=== PATIENT | male | born 1960 | race Caucasian/White ===

== ENCOUNTER 2018-08-28 18:07 | Observation (INO) | payer MEDICAID ==
[~2018-08-28] VITALS: Ht 177.8 cm; Wt 75.0 kg
--- NOTE | 2018-08-28 19:20 | NUR ---
PT HAS FAMILY IN ROOM- SON STATES HE IS THE PATIENT'S POWER OF SENIOR DATABASE PROGRAMMER. STATES THE PATIENT HAD BEEN IN THE LONG TERM FOR HIS CIRRHOSIS AND DEMENTIA- STATES DRINKS A FIFTH OF HARD LIQUOR DAILY. WAS SENT HOME ON HOSPICE, BUT TODAY, THE HOSPICE NURSE WENT TO SEE PATIENT AND DECIDED HE NEEDED TO COME TO THE HOSPITAL. PT ALMA. HAS VOIDED ON THE FLOOR. EVS IN TO CLEAN FLOOR.
[2018-08-28 19:26] LABS: BASOPHILS 1.1 % (0-2); EOSINOPHILS 1.6 % (0-7); HEMOGLOBIN 13.5 g/dL (13.5-17.5); IMMATURE GRANULOCYTES 0.3 % (0-5); LYMPHOCYTES 36.8 % (15-50); MCH 30.3 pg (26.0-34.0); MCHC 34.6 g/dL (31.0-37.0); MCV 87.6 fL (80.0-100.0); MEAN PLATELET VOLUME 7.8 fL (7.4-10.4); MONOCYTES 9.3 % (2-11); NEUTROPHILS 50.9 % (40-80); RBC 4.45 10x6/uL (4.20-6.10); RDW 15.7 % (11.5-14.5); WBC 15.2 10x3/uL (4.8-10.8)
[2018-08-28 19:43] LABS: ALBUMIN 3.2 g/dL (3.4-5.0); ALKALINE PHOSPHATASE 125 U/L (46-116); ALT (SGPT) 23 U/L (10-68); BILIRUBIN - TOTAL 0.37 mg/dL (0.2-1.3); CALCIUM 8.1 mg/dL (8.5-10.1); CARBON DIOXIDE 20.5 mmol/L (21.0-32.0); CHLORIDE - SERUM 102 mmol/L (98-107); CREATININE - SERUM 0.5 mg/dL (0.6-1.3); PROTEIN - SERUM 7.9 g/dL (6.4-8.2); SODIUM 142 mmol/L (136-145); UREA NITROGEN 5 mg/dL (7-18); eGFR NON AFRICAN AMERICAN > 90 mL/min (90-120)
[2018-08-28 19:44] LABS: MAGNESIUM - SERUM 1.3 mg/dL (1.8-2.4)
[2018-08-28 19:48] LABS: CALC OSMOLALITY 279 mosm/kg (275-300); GLUCOSE 96 mg/dL (74-106)
--- NOTE | 2018-08-28 19:51 | NUR ---
PT ON CM- HR 120. STATES "HASN'T EATEN IN 4 DAYS"- PT GIVEN WATER AND SANDWHICH TRAY. IV FLUIDS AND BANANA BAG INFUSING WITH NO SIGNS OF INFLITRATION.
[2018-08-28 20:01] LABS: PLATELET COUNT 288 10x3/uL (130-400)
--- NOTE | 2018-08-28 20:12 | NUR ---
BLANKET TO PATIENT.
[2018-08-28 21:04] LABS: APPEARANCE CLEAR (CLEAR); COLOR YELLOW (YELLOW)
[2018-08-28 21:05] LABS: BILIRUBIN NEGATIVE (NEGATIVE); GLUCOSE NEGATIVE (NEGATIVE); KETONE NEGATIVE (NEGATIVE); NITRITE NEGATIVE (NEGATIVE); PROTEIN NEGATIVE (NEGATIVE); UROBILINOGEN NORMAL (NORMAL)
[2018-08-28 21:20] LABS: UDS - AMPHET POSITIVE QUAL (NEGATIVE); UDS - BARB NEGATIVE QUAL (NEGATIVE); UDS - BENZO NEGATIVE QUAL (NEGATIVE); UDS - COCAINE NEGATIVE QUAL (NEGATIVE); UDS - OPIATE NEGATIVE QUAL (NEGATIVE); UDS - PCP NEGATIVE QUAL (NEGATIVE); UDS - THC NEGATIVE QUAL (NEGATIVE)
[2018-08-28 22:42] VITALS: BP 129/89
--- NOTE | 2018-08-29 01:05 | NUR ---
PATIENT PULLED LEFT HAND IV OUT, BLED ALL OVER THE BED AND INTO THE BATHROOM. HAD BM. PATIENT STATED HE 'DIDN'T NEED NO DAMN NEEDLES IN HIM', REINFORCED L FA IV WITH COBMALINDA AND EDUCATED PATIENT WE NEEDED THE IV TO GIVE HIS MEDS. PATIENT WAS UNABLE TO GIVE MED REC AND STATED HE DIDN'T KNOW WHAT HE WAS ON HOSPICE FOR OR WHAT CUSTODIAL HE LIVED IN. BED IN LOWEST POSITION, CALL LIGHT IN REACH.
[2018-08-29 04:00] VITALS: BP 116/70
--- NOTE | 2018-08-29 05:11 | NUR ---
PATIENT LYING SIDEWAYS IN BED, CONTINUES TO REQUEST BLANKETS AND TO TURN THE HEAT UP. HEAT IS ON. PATIENT CONTINUES TO BE UNABLE TO ANSWER ANY QUESTIONS ABOUT CONDITION, HOSPICE ADMISSION/DIAGNOSIS OR PROVIDE ANY FAMILY TO CONFIRM MEDICAL/PHARM HISTORY. BED IN LOWEST POSITION, CALL LIGHT IN REACH.
[2018-08-29 07:13] LABS: BASOPHILS 0.7 % (0-2); EOSINOPHILS 4.9 % (0-7); HEMATOCRIT 31.4 % (42.0-54.0); HEMOGLOBIN 10.8 g/dL (13.5-17.5); IMMATURE GRANULOCYTES 0.2 % (0-5); LYMPHOCYTES 36.1 % (15-50); MCH 29.8 pg (26.0-34.0); MCHC 34.4 g/dL (31.0-37.0); MCV 86.5 fL (80.0-100.0); MONOCYTES 11.3 % (2-11); NEUTROPHILS 46.8 % (40-80); PLATELET COUNT 239 10x3/uL (130-400); RBC 3.63 10x6/uL (4.20-6.10); RDW 15.8 % (11.5-14.5)
[2018-08-29 07:19] LABS: WBC 8.2 10x3/uL (4.8-10.8)
[2018-08-29 07:35] LABS: ALBUMIN 2.6 g/dL (3.4-5.0); ALKALINE PHOSPHATASE 91 U/L (46-116); ALT (SGPT) 19 U/L (10-68); BILIRUBIN - TOTAL 0.71 mg/dL (0.2-1.3); CALC OSMOLALITY 273 mosm/kg (275-300); CALCIUM 7.7 mg/dL (8.5-10.1); CARBON DIOXIDE 21.1 mmol/L (21.0-32.0); CHLORIDE - SERUM 107 mmol/L (98-107); CREATININE - SERUM 0.5 mg/dL (0.6-1.3); GLUCOSE 84 mg/dL (74-106); MAGNESIUM - SERUM 1.6 mg/dL (1.8-2.4); PROTEIN - SERUM 6.2 g/dL (6.4-8.2); SODIUM 139 mmol/L (136-145); UREA NITROGEN 5 mg/dL (7-18); eGFR NON AFRICAN AMERICAN > 90 mL/min (90-120)
[2018-08-29 07:37] LABS: POTASSIUM - SERUM 3.6 mmol/L (3.5-5.1)
[2018-08-29 08:45] VITALS: BP 128/79
[2018-08-29 10:39] VITALS: Ht 177.8 cm; Wt 75.0 kg
--- NOTE | 2018-08-29 10:52 | NUR ---
PATIENT HAD A BOWEL MOVEMENT AND THERE WAS BLOOD IN THE STOOL. WILL CONTINUE TO MONITOR
[2018-08-29 12:54] LABS: HEMATOCRIT 34.5 % (42.0-54.0); HEMOGLOBIN 11.7 g/dL (13.5-17.5)
[2018-08-29 13:00] VITALS: BP 137/86
[2018-08-29 13:10] LABS: % SATURATION 92 % (15-55); IRON 223 ug/dl (35-150); TOTAL IRON BIND CAPACITY 240 ug/dl (260-445)
[2018-08-29 13:13] LABS: UNSAT IRON BIND CAPACITY 17 ug/dl (150-375)
[2018-08-29 13:19] LABS: FERRITIN 160 ng/mL (3-244); LDH 186 U/L (85-227)
--- NOTE | 2018-08-29 14:30 | NUR ---
SON JAGDEEP SAYS THAT HE IS ABOUT TO MOVE IN WITH HIM IN [place]. [phone]
--- NOTE | 2018-08-29 15:18 | MORECARE ---
CASE MANAGEMENT DISCHARGE SUMMARY PATIENT: GENARO TYLER UNIT: [id number] ADM DATE: 08/28/18 AGE: 57 : 58 SEX: M ROOM/BED: D.2234 AUTHOR: MARTIN LAW PHYSICIAN: REFERRING PHYSICIAN: CHADD GARZA MD DATE OF SERVICE: 08/29/18 Discharge Plan Patient Name: GENARO TYLER [facility] [facility] 1960 Planned Disposition: Home with Hospice Anticipated Discharge Date: Discharge Date: Expected LOS: Initial Reviewer: [email or web address] Initial Review Date: 08/29/2018 Generated: 08/29/18 4:18 pm DCPIA - Discharge Planning Initial Assessment Updated by [email or web address]: Moraima Beth on 08/29/18 3:12 pm * Is the patient Alert and Oriented? Yes * How many steps to enter\exit or inside your home? 1/0 * PCP No PCP * [facility] * Preadmission Environment Home Alone * ADLs Independent * Equipment None * List name and contact numbers for known caregivers / representatives who currently or will assist patient after discharge: Sid Tyler - [phone] (son) * Verbal permission to speak to the caregivers and representatives has been obtained from the patient. Yes * Community resources currently utilized Hospice Home * Please name any agencies selected above. [facility] * Additional services required to return to the preadmission environment? No * Can the patient safely return to the preadmission environment? No * Has this patient been hospitalized within the prior 30 days at any hospital? No Patient Name: GENARO TYLER Page 53640 at 1518 All edits/amendments must be made on the electronic document DICTATION DATE: 08/29/181516 CHEMICAL RESEARCH TECHNICIAN: CL 08/29/181516 RPT#: [id number] DC DATE: STATUS: ADM IN [facility] [address] [place] [address] END OF REPORT
[2018-08-29 15:32] LABS: APPEARANCE CLEAR (CLEAR); BILIRUBIN NEGATIVE (NEGATIVE); COLOR YELLOW (YELLOW); GLUCOSE NEGATIVE (NEGATIVE); KETONE NEGATIVE (NEGATIVE); NITRITE NEGATIVE (NEGATIVE); PROTEIN NEGATIVE (NEGATIVE); UROBILINOGEN NORMAL (NORMAL)
--- NOTE | 2018-08-29 15:45 | MORECARE ---
CASE MANAGEMENT DISCHARGE SUMMARY PATIENT: GENARO TYLER UNIT: [id number] ADM DATE: 08/28/18 AGE: 57 : 58 SEX: M ROOM/BED: D.2234 AUTHOR: ANIDOC PHYSICIAN: REFERRING PHYSICIAN: CHADD GARZA MD DATE OF SERVICE: 08/29/18 Discharge Plan Patient Name: GENARO TYLER Facility: [facility]:[place] : 1960 Planned Disposition: Home with Hospice Anticipated Discharge Date: Discharge Date: Expected LOS: Initial Reviewer: [email or web address] Initial Review Date: 08/29/2018 Generated: 08/29/18 4:44 pm Comments DCP- Discharge Planning Updated by [email or web address]: Moraima Beth on 08/29/18 2:[address] Patient Name: GENARO TYLER Admission Status: ER Accout number: [id number] Admission Date: 08-28-2018 : 1960 Admission Diagnosis: Attending: CHADD GARZA Current LOS: 1 Anticipated DC Date: Planned Disposition: Home with Hospice Primary Insurance: MEDICAID [place] Discharge Planning Comments: Patient's son (Sid) called me, states he is his father's POA. States he plans on taking his father home with him. I met with the patient and he agrees to this plan. He states he would like to have [facility] restarted. States he does not need home health. The son states he would like information on personal care. I did call Clarisa with [facility] and ask if she could call the son per his request. Clarisa states they will call the patient's son. I spoke with Jer with [facility] and he states they will follow up with him after discharge from the hospital. I gave Jer his son's name and address of [address] [place] [address]. CM will continue to follow and assist with discharge planning/needs. Health Analyst: Moraima Beth DCPIA - Discharge Planning Initial Assessment Updated by [email or web address]: Moraima Beth on 08/29/18 3:12 pm * Is the patient Alert and Oriented? Yes * How many steps to enter\exit or inside your home? 1/0 * PCP No PCP * Pharmacy [facility] [address] * Preadmission Environment Home Alone * ADLs Independent * Equipment None * List name and contact numbers for known caregivers / representatives who currently or will assist patient after discharge: Sid Tyler - [phone] (son) * Verbal permission to speak to the caregivers and representatives has been obtained from the patient. Yes * Community resources currently utilized Hospice Home * Please name any agencies selected above. [facility] * Additional services required to return to the preadmission environment? No * Can the patient safely return to the preadmission environment? No * Has this patient been hospitalized within the prior 30 days at any hospital? No Last DP export: 08/29/18 2:18 p Patient Name: GENARO TYLER Page [id number] at 1540 All edits/amendments must be made on the electronic document DICTATION DATE: 08/29/181543 CODING ADVISOR: CL 08/29/18 154 RPT#: [id number] DC DATE: STATUS: ADM IN [facility] [address] [place] [address] END OF REPORT
[2018-08-29 16:45] VITALS: BP 137/85
--- NOTE | 2018-08-29 16:55 | NUR ---
SPOKE WITH MARIA DOLORES AT [facility]. SHE STATED THAT MR SHAW HAD BEEN REMOVED FROM THEIR SERVICE OF 08/28/18. STATED THAT PT WAS NONCOMPLIANT WITH MEDICATIONS.
[2018-08-29 18:09] LABS: INR 1.3 (0.85-1.17); PROTIME 15.6 SECONDS (11.6-15.0)
--- NOTE | 2018-08-29 19:15 | NUR ---
INTRODUCED SELF TO PATIENT, PATIENT STILL RESTLESS. RESP EVEN AND UNLABORED, GIVEN ATIVAN 2MG FOR DT. PATIENT CONTINUES TO TRY TO GET DRESSED AND LEAVE THE FACILITY. BED ALARM IN PLACE, BED IN LOWEST POSITION, CALL LIGHT IN REACH.
--- NOTE | 2018-08-29 20:46 | NUR ---
PATIENT CONTINUES TO TRY TO GET OUT OF BED AND PUT SHOES ON "TO LEAVE TO GO TO THE [facility]". PATIENT PASSED TWO QUARTER SIZE BLOOD CLOTS IN STOOL, STOOL VERY HARD AND PELLET LIKE. STOOL SAMPLE WAS POS. FOR OCCULT BLOOD.
[2018-08-29 22:03] VITALS: BP 132/79
--- NOTE | 2018-08-30 03:17 | NUR ---
FULL BED CHANGE, PATIENT STOOD AND URINATED IN BED. REEDUCATED PATIENT HE HAS A URINAL. BED IN LOWEST POSITION, CALL LIGHT IN REACH.
--- NOTE | 2018-08-30 03:18 | NUR ---
PATIENT RESTING QUIETLY WITH EYES CLOSED, RESP EVEN AND UNLABORED.
[2018-08-30 05:43] VITALS: BP 129/81
[2018-08-30 06:04] LABS: BASOPHILS 0.8 % (0-2); EOSINOPHILS 9.7 % (0-7); HEMATOCRIT 33.4 % (42.0-54.0); HEMOGLOBIN 11.8 g/dL (13.5-17.5); IMMATURE GRANULOCYTES 0.2 % (0-5); LYMPHOCYTES 30.8 % (15-50); MCH 30.7 pg (26.0-34.0); MCHC 35.3 g/dL (31.0-37.0); MEAN PLATELET VOLUME 8.4 fL (7.4-10.4); MONOCYTES 8.1 % (2-11); NEUTROPHILS 50.4 % (40-80); PLATELET COUNT 217 10x3/uL (130-400); RBC 3.84 10x6/uL (4.20-6.10); RDW 15.5 % (11.5-14.5); WBC 8.8 10x3/uL (4.8-10.8)
[2018-08-30 06:28] LABS: ALBUMIN 2.7 g/dL (3.4-5.0); ALKALINE PHOSPHATASE 141 U/L (46-116); ALT (SGPT) 18 U/L (10-68); AMYLASE - SERUM 69 U/L (25-115); BILIRUBIN - TOTAL 1.22 mg/dL (0.2-1.3); CALC OSMOLALITY 272 mosm/kg (275-300); CARBON DIOXIDE 19.8 mmol/L (21.0-32.0); CHLORIDE - SERUM 103 mmol/L (98-107); GLUCOSE 95 mg/dL (74-106); LIPASE 384 U/L (73-393); MAGNESIUM - SERUM 1.5 mg/dL (1.8-2.4); PHOSPHOROUS 4.9 mg/dL (2.5-4.9); POTASSIUM - SERUM 3.3 mmol/L (3.5-5.1); PROTEIN - SERUM 6.9 g/dL (6.4-8.2); SODIUM 138 mmol/L (136-145); UREA NITROGEN 5 mg/dL (7-18)
[2018-08-30 06:30] LABS: CREATININE - SERUM 0.3 mg/dL (0.6-1.3); INR 1.28 (0.85-1.17); PROTIME 15.4 SECONDS (11.6-15.0); eGFR NON AFRICAN AMERICAN > 90 mL/min (90-120)
--- NOTE | 2018-08-30 08:04 | NUR ---
PT RESTING IN BED. AROUSED BY VERBAL STIMULI. NO S/S OF ACUTE DISTRESS. CL IN PLACE.
[2018-08-30 08:21] LABS: FOLATE (FOLIC ACID) - SERUM 13.3 ng/mL (>3.0)
[2018-08-30 08:38] VITALS: BP 118/82
[2018-08-30 13:04] VITALS: BP 189/87
--- NOTE | 2018-08-30 15:05 | MORECARE ---
CASE MANAGEMENT DISCHARGE SUMMARY PATIENT: GENARO SHAW UNIT: [id number] ADM DATE: 08/28/18 AGE: 57 : 58 SEX: M ROOM/BED: D.2234 AUTHOR: MARTIN LAW PHYSICIAN: REFERRING PHYSICIAN: CHADD GARZA MD DATE OF SERVICE: 08/30/18 Discharge Plan Patient Name: GENARO SHAW Facility: [facility]:[place] : 1960 Planned Disposition: Home with Hospice Anticipated Discharge Date: Discharge Date: Expected LOS: Initial Reviewer: [email or web address] Initial Review Date: 08/29/2018 Generated: 08/30/18 4:05 pm Comments DCP- Discharge Planning Updated by [email or web address]: Moraima Beth on 08/30/18 1:[address] Received discharge orders. Max, his primary nurse, has called his son and he is on his way to pick him up. I called Jer with [facility] and he states he will have the social services counselor go to his son's home and they will admit him once they know he is in a stable environment and will stay. I faxed clinical to [facility]. CM will continue to follow and assist with discharge planning/needs. DCP- Discharge Planning Updated by [email or web address]: Moraima Beth on 08/29/18 2:[address] Patient Name: GENARO SHAW Admission Status: ER Accout number: [id number] Admission Date: 08-28-2018 : 1960 Admission Diagnosis: Attending: CHADD GARZA Current LOS: 1 Anticipated DC Date: Planned Disposition: Home with Hospice Primary Insurance: MEDICAID [place] Discharge Planning Comments: Patient's son (Sid) called me, states he is his father's POA. States he plans on taking his father home with him. I met with the patient and he agrees to this plan. He states he would like to have [facility] restarted. States he does not need home health. The son states he would like information on personal care. I did call Clarisa with [facility] and ask if she could call the son per his request. Clarisa states they will call the patient's son. I spoke with Jer with [facility] and he states they will follow up with him after discharge from the hospital. I gave Jer his son's name and address of [address] [place] [address]. CM will continue to follow and assist with discharge planning/needs. Rapid Transit Operator: Moraima Beth DCPIA - Discharge Planning Initial Assessment Updated by [email or web address]: Moraima Beth on 08/29/18 3:12 pm * Is the patient Alert and Oriented? Yes * How many steps to enter\exit or inside your home? 1/0 * PCP No PCP * Pharmacy [facility] [address] * Preadmission Environment Home Alone * ADLs Independent * Equipment None * List name and contact numbers for known caregivers / representatives who currently or will assist patient after discharge: Sid Nayeli - [phone] (son) * Verbal permission to speak to the caregivers and representatives has been obtained from the patient. Yes * Community resources currently utilized Hospice Home * Please name any agencies selected above. [facility] * Additional services required to return to the preadmission environment? No * Can the patient safely return to the preadmission environment? No * Has this patient been hospitalized within the prior 30 days at any hospital? No External Providers External Provider[facility] [place] Next Contact Date: Service Request Date: Service Type: Resolution: Reviewer: Comments: Last DP export: 08/29/18 2:44 p Patient Name: GENARO SHAW Page [phone] at 1505 All edits/amendments must be made on the electronic document DICTATION DATE: 08/30/18 1505 CHAIN FORMING MACHINE OPERATOR: CL 08/30/18 1505 RPT#: [id number] DC DATE: STATUS: ADM IN [facility] [address] [place] [address] END OF REPORT
--- NOTE | 2018-08-30 15:45 | NUR ---
DC INSTRUCTIONS AND EDUCATION DONE WITH PT AND SON. DC IV WITH TIP IN TACT. GOT PT SOME PAPER SCRUB BOTTOMS. PUSHED PT OUT WITH SON VIA WC TO THE TOP OF [place] BY ER FOR THE BUS TO RUN. NO S/S OF ACUTE DISTRESS.
--- NOTE | 2018-08-30 17:06 | MORECARE ---
CASE MANAGEMENT DISCHARGE SUMMARY PATIENT: GENARO SHAW UNIT: [id number] ADM DATE: 08/28/18 AGE: 57 : 58 SEX: M ROOM/BED: D.2234 AUTHOR: ANIDOC PHYSICIAN: REFERRING PHYSICIAN: CHADD GARZA MD DATE OF SERVICE: 08/30/18 Discharge Plan Patient Name: GENARO SHAW Facility: [facility]:[place] : 1960 Planned Disposition: Home with Hospice Anticipated Discharge Date: Discharge Date: 08/30/2018 Expected LOS: 0 Initial Reviewer: [email or web address] Initial Review Date: 08/29/2018 Generated: 08/30/18 6:06 pm Comments DCP- Discharge Planning Updated by [email or web address]: Moriama Beth on 08/30/18 1:[address] Received discharge orders. Max, his primary nurse, has called his son and he is on his way to pick him up. I called Jer with [facility] and he states he will have the social media designer go to his son's home and they will admit him once they know he is in a stable environment and will stay. I faxed clinical to [facility]. CM will continue to follow and assist with discharge planning/needs. DCP- Discharge Planning Updated by [email or web address]: Moraima Beth on 08/29/18 2:[address] Patient Name: GENARO SHAW Admission Status: ER Accout number: [id number] Admission Date: 08-28-2018 : 1960 Admission Diagnosis: Attending: CHADD GARZA Current LOS: 1 Anticipated DC Date: Planned Disposition: Home with Hospice Primary Insurance: MEDICAID [place] Discharge Planning Comments: Patient's son (Sid) called me, states he is his father's POA. States he plans on taking his father home with him. I met with the patient and he agrees to this plan. He states he would like to have [facility] restarted. States he does not need home health. The son states he would like information on personal care. I did call Clarisa with [facility] and ask if she could call the son per his request. Clarisa states they will call the patient's son. I spoke with Jer with [facility] and he states they will follow up with him after discharge from the hospital. I gave Jer his son's name and address of [address] [place] [address]. CM will continue to follow and assist with discharge planning/needs. Agency Sales Representative: Moraima Limonyrn DCPIA - Discharge Planning Initial Assessment Updated by [email or web address]: Moraima Limonyrn on 08/29/18 3:12 pm * Is the patient Alert and Oriented? Yes * How many steps to enter\exit or inside your home? 1/0 * PCP No PCP * Pharmacy [facility] [address] * Preadmission Environment Home Alone * ADLs Independent * Equipment None * List name and contact numbers for known caregivers / representatives who currently or will assist patient after discharge: Sid Sheikhgins - [phone] (son) * Verbal permission to speak to the caregivers and representatives has been obtained from the patient. Yes * Community resources currently utilized Hospice Home * Please name any agencies selected above. [facility] * Additional services required to return to the preadmission environment? No * Can the patient safely return to the preadmission environment? No * Has this patient been hospitalized within the prior 30 days at any hospital? No Last DP export: 08/30/18 2:05 p Patient Name: GENARO SHAW Page [id number] at 1706 All edits/amendments must be made on the electronic document DICTATION DATE: 08/30/181705 MEDICAL DOCTOR MD: CL 08/30/181705 RPT#: [id number] DC DATE:08/30/18 STATUS: DIS IN [facility] [address] [place] [address] END OF REPORT
[2018-08-31 06:17] LABS: HEPATITIS C ANTIBODY 0.2 S/CO RAT (0.0-0.9)
== END 2018-08-30 15:30 | disposition home or self-care (01) ==
LOC: D.ER 18:07 → D.MS 22:31 → OBSVTIME 22:31 → D.MS 22:31
PROVIDERS: Emergency Medicine; Family Medicine; Internal Medicine Gastroenterology; ADMIT Internal Medicine Nephrology
DX: K92.2 Gastrointestinal hemorrhage, unspecified (principal); D68.59 Other primary thrombophilia

== ENCOUNTER 2018-11-22 18:35 | Emergency (ER) | payer MEDICAID ==
[~2018-11-22] VITALS: Ht 177.8 cm; Wt 68.2 kg
[2018-11-22 18:45] VITALS: Ht 177.8 cm; Wt 68.2 kg
[2018-11-22 20:08] LABS: BASOPHILS 0.3 % (0-2); EOSINOPHILS 3.3 % (0-7); HEMATOCRIT 27.7 % (42.0-54.0); HEMOGLOBIN 9.5 g/dL (13.5-17.5); IMMATURE GRANULOCYTES 0.7 % (0-5); LYMPHOCYTES 22.1 % (15-50); MCH 29.6 pg (26.0-34.0); MCHC 34.3 g/dL (31.0-37.0); MCV 86.3 fL (80.0-100.0); MEAN PLATELET VOLUME 9.6 fL (7.4-10.4); MONOCYTES 7.7 % (2-11); NEUTROPHILS 65.9 % (40-80); PLATELET COUNT 67 10x3/uL (130-400); RBC 3.21 10x6/uL (4.20-6.10); RDW 15.4 % (11.5-14.5); WBC 5.8 10x3/uL (4.8-10.8)
[2018-11-22 20:20] LABS: ALBUMIN 2.1 g/dL (3.4-5.0); ALKALINE PHOSPHATASE 194 U/L (46-116); ALT (SGPT) 21 U/L (10-68); BILIRUBIN - TOTAL 1.43 mg/dL (0.2-1.3); CALC OSMOLALITY 254 mosm/kg (275-300); CALCIUM 7.1 mg/dL (8.5-10.1); CARBON DIOXIDE 26.4 mmol/L (21.0-32.0); CHLORIDE - SERUM 95 mmol/L (98-107); CREATININE - SERUM 0.4 mg/dL (0.6-1.3); GLUCOSE 88 mg/dL (74-106); SODIUM 129 mmol/L (136-145); UREA NITROGEN 3 mg/dL (7-18); eGFR NON AFRICAN AMERICAN > 90 mL/min (90-120)
[2018-11-22 20:25] LABS: MAGNESIUM - SERUM 0.8 mg/dL (1.8-2.4); POTASSIUM - SERUM 2.9 mmol/L (3.5-5.1)
[2018-11-22 21:07] LABS: PLATELET ESTIMATE DECREASED
[2018-11-23 01:48] VITALS: BP 106/73
== END 2018-11-23 01:40 | disposition home or self-care (01) ==
LOC: D.ER 18:35
PROVIDERS: Family Medicine
DX: G40.89 Other seizures (principal); D64.9 Anemia, unspecified; E87.6 Hypokalemia; E83.42 Hypomagnesemia; E87.1 Hypo-osmolality and hyponatremia

== ENCOUNTER 2019-02-08 18:38 | Emergency (ER) | payer MEDICAID ==
[~2019-02-08] VITALS: Ht 177.8 cm; Wt 61.4 kg
[2019-02-08 19:04] VITALS: Ht 177.8 cm; Wt 61.4 kg
[2019-02-08 20:24] LABS: BASOPHILS 0.8 % (0-2); EOSINOPHILS 2.9 % (0-7); HEMATOCRIT 38.2 % (42.0-54.0); HEMOGLOBIN 13.2 g/dL (13.5-17.5); IMMATURE GRANULOCYTES 0.4 % (0-5); LYMPHOCYTES 36.4 % (15-50); MCH 31.5 pg (26.0-34.0); MCHC 34.6 g/dL (31.0-37.0); MCV 91.2 fL (80.0-100.0); MEAN PLATELET VOLUME 9.2 fL (7.4-10.4); MONOCYTES 4.5 % (2-11); RBC 4.19 10x6/uL (4.20-6.10); RDW 15.7 % (11.5-14.5)
[2019-02-08 20:25] LABS: PLATELET COUNT 150 10x3/uL (130-400)
[2019-02-08 20:32] LABS: APTT 33.1 SECONDS (22.8-39.4); INR 1.07 (0.85-1.17); PROTIME 13.4 SECONDS (11.6-15.0)
[2019-02-08 20:43] LABS: ALBUMIN 2.5 g/dL (3.4-5.0); ALKALINE PHOSPHATASE 524 U/L (46-116); ALT (SGPT) 28 U/L (10-68); BILIRUBIN - TOTAL 1.22 mg/dL (0.2-1.3); CALC OSMOLALITY 261 mosm/kg (275-300); CALCIUM 7.9 mg/dL (8.5-10.1); CARBON DIOXIDE 25.9 mmol/L (21.0-32.0); CHLORIDE - SERUM 93 mmol/L (98-107); CREATININE - SERUM 0.5 mg/dL (0.6-1.3); GLUCOSE 99 mg/dL (74-106); PROTEIN - SERUM 9.1 g/dL (6.4-8.2); SODIUM 132 mmol/L (136-145); UREA NITROGEN 3 mg/dL (7-18); eGFR NON AFRICAN AMERICAN > 90 mL/min (90-120)
[2019-02-08 20:46] LABS: POTASSIUM - SERUM 2.5 mmol/L (3.5-5.1)
[2019-02-09 02:28] VITALS: BP 91/64
== END 2019-02-09 02:30 | disposition other institution (70) ==
LOC: D.ER 18:38
PROVIDERS: Family Medicine
DX: K92.2 Gastrointestinal hemorrhage, unspecified (principal); K52.9 Noninfective gastroenteritis and colitis, unspecified; S42.292A Other displaced fracture of upper end of left humerus, initial encounter for closed fracture; W18.30XA Fall on same level, unspecified, initial encounter; Y93.89 Activity, other specified; Y92.89 Other specified places as the place of occurrence of the external cause; K92.1 Melena